=== PATIENT | male | born 1995 | race Caucasian/White ===

== ENCOUNTER 2020-09-28 10:17 | Emergency (ER) | payer MEDICAID, SELFPAY ==
[2020-09-28 10:19] VITALS: BP 142/76; PULSE 97; RESP 18; TEMP 36.8; O2SAT 98; BMI 39.9
--- NOTE | 2020-09-28 10:35 | EX.ED.DYSGE1 ---
HPI History of Present Illness Chief Complaint: Other, Pain/Inj Informant: patient Onset/Context/Timing Onset: Weeks Context: Gradual Onset Timing: Continuous Current Severity: Mild Maximum Severity: Mild Narrative Narrative: 24-year-old male history of eczema currently on no medications. States about a week ago he had dry cracked skin on his feet started to peel. Now is on his hands also. States uncomfortable. He denies any fever or chills. He says never had a rash like this before. He has his typical eczema rash on his upper lower extremities but says that is different than this. He denies any other symptoms. Prior similar symptoms: No Recent Illness/Hospitalization: No PFSH PFSH Medical History Eczema Home Medications prednisone 40 mg PO DAILY 10 Days #20 tab 09/28/20 [Rx Last Taken Unknown] Allergy/AdvReac Type Severity Reaction Status Date / Time Penicillins [PCN] Allergy Rash Verified 09/28/20 10:19 Social History Smoking Status: Current every day smoker tobacco type: cigarettes ROS ROS ED ROS Narrative Denies any recent illness. Review of Systems ROS Unobtainable: Denies due to encephalopathy Constitutional Constitutional ED: Denies chills or fever(s) Eyes Eyes: Denies change in vision ENT ENT ED: Denies ear pain or sore throat Cardiovascular Cardiovascular: Denies chest pain Respiratory/Chest Respiratory/Chest: Denies cough or dyspnea Gastrointestinal Gastrointestinal: Denies abdominal pain, diarrhea, nausea or vomiting Genitourinary Genitourinary ED: Denies dysuria or hematuria Musculoskeletal Musculoskeletal: Denies myalgias Integumentary Reports rash Neurologic Neurologic: Denies headache(s) Psychiatric Psychiatric: Denies depression Endocrine Endocrinology: Denies polyuria Allergic/Immunologic Allergic/Immunologic ED: Denies urticaria EXAM Physical Exam Narrative Exam Narrative: Well-appearing young male no acute distress. Vital signs stable afebrile. Lungs are clear. Heart regular rate and rhythm. Abdomen soft nontender. Skin he has a his normal eczema rash on his forearms and lower extremities. He has dry cracked skin on both hands and feet with some sloughing of skin. There is no secondary cellulitis. There are no vesicles. No petechiae no purpura. Const Vital Signs: 09/28/20 10:19 Temperature 98.3 F Temperature Source Temporal Pulse Rate 97 Respiratory Rate 18 Blood Pressure 142/76 H Blood Pressure Mean 98 Pulse Ox 98 Oxygen Delivery Method Room Air Positive well nourished and well developed General Appearance ED: well developed and NAD HEENT Reports moist mucous membranes Negative for trauma or tenderness Eyes PERRL and EOMs intact bilaterally Neck no lymphadenopathy, supple and no JVD General: Negative for tenderness Chest Wall inspection of chest normal Resp normal respiratory effort and clear to auscultation bilaterally Effort and Inspection: pain with movement Auscultation: Negative for rales or rhonchi Cardio regular rate, regular rhythm, S1 normal heart sound and no murmurs GI normal to inspection, nondistended, normoactive bowel sounds, non-tender and non-distended Palpation: soft Back/Spine no CVA tenderness General Back: Negative for CVA tenderness Cervical Spine: Negative for cervical spine tenderness Thoracic Spine / Upper Back: Negative for thoracic spinal tenderness Extremity normal to inspection Extremity Narrative: Eczema type rash on anterior shins and forearms. Dry and cracked skin to both hands and feet. No secondary cellulitis. General Extremety ED: Negative for edema or tenderness General Extremity: Negative for edema Neuro oriented x3 and CN's II-XII intact bilaterally Sensorium / Orientation: alert Motor Exam: strength 5/5 throughout Psych mental status grossly normal Mood & Affect: anxious; Negative for depressed or tearful Skin no wounds Rashes: rashes noted MDM MDM MDM Narrative Medical decision making narrative: Patient be treated with prednisone 40 mg a for 10 days for his eczema. Will be sure to follow-up with his [employer] appointment in 3 weeks season because he can get that moved up. Also skin moisturizer both hands and feet. Discharge Plan Triage Chief Complaint: Other, Pain/Inj ED Provider: Socrates Jo Dx/Rx/DC Orders Clinical Impression: Eczema Instructions: ED Atopic Dermatitis (Adult) Prescriptions: New prednisone 20 mg tablet 40 mg PO DAILY 10 Days Qty: 20 RF: 0 Primary Care Provider: NOT,DEFINED Referrals: NOT,DEFINED [Primary Care Provider] - Activity Restrictions/Additional Instructions: Prednisone daily for times a day for next 10 days. Call and follow-up with his [employer] soon as possible. Skin moisturizer to both her hands and feet. Disposition Disposition: Home, Self Care
== END 2020-09-28 11:17 | disposition home or self-care (01) ==
LOC: ED 11:07
PROVIDERS: Emergency Provider Emergency Medicine
DX: L30.9 Dermatitis, unspecified (principal); F17.210 Nicotine dependence, cigarettes, uncomplicated
CPT/HCPCS: 99282